=== PATIENT | female | born 1970 | race Caucasian/White ===

== ENCOUNTER 2016-09-30 05:21 | Observation (INO) | payer OTHER ==
[~2016-09-30] VITALS: Ht 157.5 cm; Wt 90.3 kg
--- NOTE | ~2016-09-30 | O ---
[facility] [place] [address] OPERATIVE REPORT Name: OTTO CALLES Room #: 306-P [facility]..#: [id number] Admission: 09/30/16 Attend Phys: Fletcher Stewart MD, F Discharge: 09/30/16 Date of : 72 Report #: [id number] THIS REPORT FOR: //name// CC: Fletcher Castillo DATE OF SERVICE: 09/30/2016 PREOPERATIVE DIAGNOSIS: Subacute and chronic cholecystitis with cholelithiasis. POSTOPERATIVE DIAGNOSES: 1. Subacute and chronic cholecystitis with cholelithiasis. 2. Cholesterolosis. PROCEDURE: Laparoscopic cholecystectomy with intraoperative cholangiogram (IOC). SURGEON: Fletcher Stewart MD. CLINICAL GENETICIST: Steve Sanchez DO. SECOND PULL WORKER: Noe Ravi MS4. INDICATIONS: A 45-year-old lady with approximately 2 months of intermittent episodes of midepigastric pain, right upper quadrant pain associated with nausea and vomiting, radiating to the back. She denies scleral icterus and has had an ultrasound demonstrating cholelithiasis and liver function tests within normal limits. She denies scleral icterus. OPERATIVE PROCEDURE: The patient had a thorough discussion of the procedure, benefits and risks. She gave informed consent to proceed. She was brought to the operating room suite and had satisfactory induction of general endotracheal anesthesia. She was given preoperative IV antibiotics. After satisfactory anesthesia was induced, sterile paint and prep of the entire abdomen was performed with DuraPrep solution. Draping was completed and an appropriate timeout was then performed. 0.5% plain Naropin was injected at all trocar sites, 30 mL was utilized during the procedure. A small infraumbilical transverse incision was made utilizing a previous scar from tubal ligation. Dissection through the fatty tissue was performed. The fascia was grasped with Tony clamps. A small opening was made in the fascia. Hemostat was utilized to gain access to the peritoneal cavity. This was enlarged. A 12 mm Clay trocar was inserted under direct vision. The balloon was inflated. Pneumoperitoneum was established. An upper midline 5 mm trocar port was then placed under direct vision just to the right of the falciform ligament. Two other 5 mm trocar ports were placed in the right upper quadrant. The gallbladder was visualized. There were omental adhesions to the inferior [address] [address] OPERATIVE REPORT Name: OTTO CALLES Room #: 306-P [facility] Mariola Leon#: [id number] Admission: 09/30/16 Attend Phys: Fletcher Stewart MD, F Discharge: 09/30/16 Date of : 72 Report #: [id number] surface of the gallbladder. The gallbladder was grasped and retracted cephalad and laterally. The omental adhesions were taken down with the Sonicision. The cystic duct triangle was clearly lineated. The cystic artery was doubly ligated proximally and then divided with the Sonicision. The cystic duct was clearly identified and visualized. It was milked in a retrograde manner toward the gallbladder. Two clips were placed toward the gallbladder. A cystotomy was performed and a taut catheter was then inserted under direct vision, it was clipped in place. An intraoperative cholangiogram was performed demonstrating free flow of contrast into the duodenum. The extrahepatic bile ducts were within normal size. No filling defects were noted. The proximal right and left hepatic ducts were well visualized. The taut catheter was removed. The cystic duct was triply ligated and then divided with Sonicision. The gallbladder was resected from the fossa without difficulty. It was placed into an Endobag and removed from the peritoneal cavity. After removal, an 0 PDS suture was placed in a [id number] fashion at the infraumbilical fascial port site. The 12 mm trocar was then reinserted. Pneumoperitoneum was reestablished. Visualization of the gallbladder fossa was performed. It was dry, hemostasis was complete. Photographs had been taken and were made part of the medical record. The 5 mm trocars were then removed under direct vision. The 12 mm trocar was removed and the pneumoperitoneum was deflated. The 0 PDS suture was ligated in place. Skin margins were approximated with subcuticular 4-0 Monocryl. Dermabond was applied. The estimated blood loss was less than 25 mL. The patient returned to recovery room in stable and satisfactory condition. She will be placed on the floor in observation status and probably be discharged in the afternoon. The gallbladder was opened on the back table revealing multiple stones of various sizes. Photographs were taken and also made part of the medical record. The patient tolerated the procedure well. <ELECTRONICALLY SIGNED> By: Fletcher Stewart MD, FACS 10/02/16 1516 [id number] Fletcher Stewart MD, FACS /nt
--- NOTE | ~2016-09-30 | S ---
[facility] [place] [address] SURGICAL PATH RPT PROCEDURE Name: SUZI CALLES Room #: 306-P [facility] Mariola Leon#: [id number] Admission: 09/30/16 Date of : 72 Discharge: 09/30/16 Report #: [id number] Path Case #: [id number] PATHOLOGY REPORT COLLECTION DATE: 09/30/2016 RECEIVED DATE: 09/30/2016 SUBMITTING PHYS: Dr. Fletcher Stewart OTHER PHYS: Dr. Lizzette Castillo SPECIMEN(S) RECEIVED: A.Gallbladder * * * * * * * * * * * * FINAL DIAGNOSIS: Gallbladder, cholecystectomy: - Chronic cholecystitis. - Cholelithiasis. - Cholesterolosis. (SKM:; 10/01/2016) PATHOLOGIST: Leah Bello M.D. REPORT ELECTRONICALLY SIGNED BY: Leah Bello M.D. DATE/TIME: 10/02/2016 08:41 * * * * * * * * * * * * GROSS PATHOLOGY: Received in formalin labeled "Suzi Calles gallbladder," is a 7.2 x 3.1 x 1.1 cm, previously opened gallbladder with smooth, shiny, pale, bluegreen serosal surfaces. The gallbladder is opened to show a dark greenyellow, velvety, bile-stained mucosa with multiple pale yellow, raised streaks extending throughout and an average wall thickness of 0.2 cm. Calculi are present and no masses are noted grossly. Safety Engineer Pressure Vessels sections from the body and fundus are submitted along with the proximal margin in cassette A1. (SNA; 09/30/2016) CLINICAL HISTORY: Subacute cholecystitis/cholelithiasis INITIAL CPT CODE(S): A; 90164 Professional services performed by [facility] at [facility] [address] , [place] [address] [facility] [address] [place] [address] SURGICAL PATH RPT PROCEDURE Name: SUZI CALLES Room #: 306-P [facility] Leon#: [id number] Admission: 09/30/16 Date of : 72 Discharge: 09/30/16 Report #: [id number] Path Case #: [id number] Technical services performed by [facility] at [address] [place] [address], [facility] [address] [address]. [facility] [address] [place] [address] PHONE: [phone] DIRECTOR: Yuri Kim M.D. * * * END OF REPORT * * *
[~2016-09-30 05:21] MED LIST: HYDROCODONE-AP1 EAC6 PO; IBUPROFEN 200200 M1 PO; NORCO 5-325 TA1 EACH PO; OMEPRAZOLE 20 M20 M1 PO; VENTOLIN HFA 1818 GM INH
[2016-09-30 07:05] LABS: HEMATOCRIT 39.6 % (37.0-47.0); HEMOGLOBIN 13.6 gm/dL (12.0-15.0); MCH 31.9 pg (26.0-34.0); MCHC 34.4 g/dL (28.0-37.0); MCV 92.8 fL (80.0-100.0); RBC 4.26 mil/uL (4.20-5.00); RDW 13.6 % (10.5-14.5); WBC 5.7 thou/uL (4.0-11.0)
[2016-09-30 07:16] LABS: CALCIUM 8.6 mg/dL (8.5-10.1); CREATININE 0.8 mg/dL (0.6-1.0); POTASSIUM 3.7 mmol/L (3.5-5.1)
[2016-09-30 07:22] LABS: ALBUMIN 3.4 g/dL (3.4-5.0); TOTAL BILIRUBIN 0.5 mg/dL (<0.1-1.0); TOTAL PROTEIN 6.5 g/dL (6.4-8.2)
[2016-09-30 07:31] VITALS: BP 104/74
[2016-09-30 11:20] VITALS: BP 108/72
[2016-09-30 15:02] VITALS: BP 108/72
== END 2016-09-30 16:00 | disposition home or self-care (01) ==
LOC: TBA 05:21 → OR 05:21 → TBA 05:22 → OR 10:15 → 3N 11:17 → OR 15:58 → 3N 16:00
PROVIDERS: Student in an Organized Health Care Education/Training Program
DX: K80.12 Calculus of gallbladder with acute and chronic cholecystitis without obstruction (principal); J45.909 Unspecified asthma, uncomplicated; R42 Dizziness and giddiness; R51 Headache; R19.4 Change in bowel habit; R06.02 Shortness of breath; R11.2 Nausea with vomiting, unspecified
CPT/HCPCS: 23023; 23024; 50010; 50101; 50249; 50411; 50555; 50962; 51489; 51975; 52265; 53307; 53314; 54022; 54118; 55245; 55317; 56462; 56525; 56526; 62110; 62900; 70005

== ENCOUNTER 2019-03-17 11:18 | Emergency (ER) | payer OTHER ==
[~2019-03-17] VITALS: Ht 157.5 cm; Wt 93.0 kg
[2019-03-17] MEDS ORDERED: NORCO 5-325 TA1 EAC1 PO (13:23)
[2019-03-17] MEDS ORDERED: SENNA-DOCUSATE1 EAC1 PO (13:23)
[2019-03-17 13:57] VITALS: BP 115/80
== END 2019-03-17 13:58 | disposition home or self-care (01) ==
LOC: ER 11:18
DX: S40.022A Contusion of left upper arm, initial encounter (principal); S50.02XA Contusion of left elbow, initial encounter; K21.9 Gastro-esophageal reflux disease without esophagitis; J45.909 Unspecified asthma, uncomplicated; W00.2XXA Other fall from one level to another due to ice and snow, initial encounter; Y93.29 Activity, other involving ice and snow; Y92.89 Other specified places as the place of occurrence of the external cause; Y99.8 Other external cause status